=== PATIENT | male | born 1995 | race Two or more races ===

== ENCOUNTER 2018-06-11 10:32 | Day surgery (SDC) | payer OTHER ==
[2018-06-11] MEDS ORDERED: POLYMYXIN/BACITRACIN 1L IRRIG (12:00)
[2018-06-11] MEDS ORDERED: MIDAZOLAM 1 MG/ML 2 ML INJ (12:06)
[2018-06-11] MEDS ORDERED: PROPOFOL 20 ML (12:06)
[2018-06-11] MEDS ORDERED: METOCLOPRAMIDE 10 MG INJ (12:06)
[2018-06-11] MEDS ORDERED: ROPIVACAINE 0.2% 20 ML VIAL (12:06)
[2018-06-11] MEDS ORDERED: KETOROLAC 30 MG INJ (12:06)
[2018-06-11] MEDS ORDERED: FENTAnyl 50 MCG/ML VIAL (12:06)
[2018-06-11] MEDS ORDERED: ONDANSETRON 4 MG INJ ×2 (12:06→16:56)
[2018-06-11] MEDS ORDERED: ROPIVACAINE 0.5 % 30 ML VIAL (12:06)
[2018-06-11] MEDS: POLYMYXIN/BACITRACIN 1L IRRIG IRR (12:28)
[2018-06-11] MEDS: NEOMYC/POLYMYX/BACIT 30 GM OINT (12:28)
[2018-06-11] MEDS ORDERED: HYDROmorphONE 2 MG/ML SYG (13:51)
[2018-06-11] MEDS ORDERED: CEFAZOLIN 1 GM INJ (13:52)
[2018-06-11] MEDS ORDERED: MEPERIDINE 100 MG INJ (16:31)
[2018-06-11] MEDS: ONDANSETRON 4 MG INJ IV (17:09)
[2018-06-11] MEDS ORDERED: KETOROLAC 30 MG INJ IV (19:30)
[2018-06-11] MEDS ORDERED: morphine 2 MG INJ IV (19:30)
== END 2018-06-11 18:49 | disposition home or self-care (01) ==
LOC: SDS 10:32
DX: S82.62XD Displaced fracture of lateral malleolus of left fibula, subsequent encounter for closed fracture with routine healing (principal); S93.402D Sprain of unspecified ligament of left ankle, subsequent encounter; X58.XXXD Exposure to other specified factors, subsequent encounter; M24.072 Loose body in left ankle
CPT/HCPCS: 27792; 73610; 82306